=== PATIENT | female | born 2005 | race African-American/Black ===

== ENCOUNTER 2024-05-08 11:25 | Emergency (ER) | payer OTHER ==
[~2024-05-08] VITALS: Ht 162.6 cm; Wt 78.7 kg
[2024-05-08 12:48] LABS: HEMATOCRIT 40.8 % (36.0-47.0); HEMOGLOBIN 13.4 g/dl (12.0-15.5); MEAN CORPUSCULAR HEMOGLOBIN 28.7 pg (27.0-33.0); MEAN CORPUSCULAR HGB CONC 32.8 g/dl (32.0-36.5); MEAN CORPUSCULAR VOLUME 87.4 fl (80.0-96.0); PLATELET COUNT, AUTOMATED 249 10^3/uL (150-450); RED BLOOD COUNT 4.67 10^6/uL (4.00-5.40); WHITE BLOOD COUNT 9.5 10^3/uL (4.0-10.0)
[2024-05-08 12:54] LABS: KETONE, URINE AUTO RFX NEGATIVE (NEGATIVE); NITRITE, URINE AUTO RFX NEGATIVE (NEGATIVE); RBC, URINE AUTO RFX TNTC /HPF (0-3); SQUAM EPITHELIAL CELL UR AURFX 5 /HPF (0-6)
[2024-05-08 13:20] LABS: LEUKOCYTE ESTERASE UR AUTO RFX 1+ (NEGATIVE); WBC, URINE AUTO RFX 51 /HPF (0-3)
[2024-05-08 13:28] LABS: BLOOD UREA NITROGEN 9 MG/DL (9-23); CALCIUM LEVEL 9.4 MG/DL (8.5-10.1); CARBON DIOXIDE LEVEL 25 MMOL/L (20-31); CHLORIDE LEVEL 109 MMOL/L (98-107); CREATININE FOR GFR 0.86 MG/DL (0.55-1.30); GLUCOSE, FASTING 82 MG/DL (60-100); POTASSIUM SERUM 4.1 MMOL/L (3.5-5.1); SODIUM LEVEL 143 MMOL/L (136-145)
[2024-05-08 13:33] LABS: HCG, SERUM QUALITATIVE NEGATIVE (NEGATIVE)
[2024-05-08] MEDS ORDERED: PYRI1TAB5 PO (14:12)
[2024-05-08] MEDS ORDERED: CEFD300C PO (14:12)
[2024-05-08] MEDS: PHENAZOPYRIDINE 100 MG TAB PO ONE (14:26)
[2024-05-08] MEDS: CEFDINIR 300 MG CAP (OMNICEF) PO ONE (14:26)
[2024-05-08] MEDS: IBUPROFEN 600MG TAB PO ONE (14:27)
[2024-05-08 14:33] VITALS: BP 141/98; TEMP 98.1; O2SAT 100
[2024-05-08 15:42] LABS: Trichomonas vaginalis (AMP) NOT DETECTED (NEGATIVE)
[2024-05-08 16:05] LABS: GC DNA AMPLIFICATION NEGATIVE (NEGATIVE)
== END 2024-05-08 14:36 | disposition home or self-care (01) ==
LOC: M ED 11:25
DX: N39.0 Urinary tract infection, site not specified (principal)

== ENCOUNTER 2024-08-12 15:32 | Emergency (ER) | payer OTHER ==
[~2024-08-12] VITALS: Ht 162.6 cm; Wt 79.3 kg
[~2024-08-12 15:32] MED LIST: CEFD300C PO; PYRI1TAB5 PO
[2024-08-12 15:34] VITALS: TEMP 98.3
[2024-08-12 16:34] LABS: KETONE, URINE AUTO RFX NEGATIVE (NEGATIVE); LEUKOCYTE ESTERASE UR AUTO RFX NEGATIVE (NEGATIVE); NITRITE, URINE AUTO RFX NEGATIVE (NEGATIVE); RBC, URINE AUTO RFX 1 /HPF (0-3); SQUAM EPITHELIAL CELL UR AURFX 2 /HPF (0-6); WBC, URINE AUTO RFX 1 /HPF (0-3)
[2024-08-12 19:19] VITALS: BP 131/90; O2SAT 99
== END 2024-08-12 19:21 | disposition home or self-care (01) ==
LOC: M ED 15:32
DX: R30.0 Dysuria (principal)

== ENCOUNTER 2024-10-16 12:19 | Emergency (ER) | payer OTHER ==
[~2024-10-16] VITALS: Ht 157.5 cm; Wt 75.6 kg
[~2024-10-16 12:19] MED LIST changes: +NAPHSOL OP
[2024-10-16 12:22] VITALS: BP 130/83; TEMP 97.2; O2SAT 100
[2024-10-16] MEDS ORDERED: CETI-24 PO (13:18)
[2024-10-16] MEDS: CETIRIZINE 10 MG TAB PO ONE (13:21)
== END 2024-10-16 13:23 | disposition home or self-care (01) ==
LOC: M ED 12:19
DX: L50.9 Urticaria, unspecified (principal)

== ENCOUNTER 2024-12-12 12:30 | Emergency (ER) | payer OTHER ==
[~2024-12-12] VITALS: Ht 160 cm; Wt 75.0 kg
[~2024-12-12 12:30] MED LIST changes: +CETI-24 PO
[2024-12-12 12:46] VITALS: TEMP 98.1
[2024-12-12 13:45] VITALS: BP 132/79; O2SAT 100
== END 2024-12-12 14:24 | disposition home or self-care (01) ==
LOC: EDBD 12:30 → M ED 12:30
DX: S16.1XXA Strain of muscle, fascia and tendon at neck level, initial encounter (principal); V49.50XA Passenger injured in collision with unspecified motor vehicles in traffic accident, initial encounter; Z79.899 Other long term (current) drug therapy; Y92.410 Unspecified street and highway as the place of occurrence of the external cause; Y93.89 Activity, other specified; Y99.9 Unspecified external cause status